=== PATIENT | male | born 1985 | race Caucasian/White ===

== ENCOUNTER 2019-03-16 08:33 | Emergency (ER) | payer BC ==
[2019-03-16] MEDS ORDERED: 0.9 % SODIUM CHLORIDE 1,000 ML BAG IV ONE (08:54)
[2019-03-16 08:58] LABS: URINE APPEARANCE CLEAR; URINE BILIRUBIN NEGATIVE (NEGATIVE); URINE BLOOD TRACE-I (NEGATIVE); URINE COLOR YELLOW; URINE GLUCOSE (UA) NEGATIVE (NEGATIVE); URINE KETONE NEGATIVE (NEGATIVE); URINE LEUKOCYTE ESTERASE NEGATIVE (NEGATIVE); URINE NITRITE NEGATIVE (NEGATIVE); URINE PROTEIN TRACE (NEGATIVE); URINE UROBILINOGEN 0.2 E.U./dL (0.20 - 1.00)
[2019-03-16 09:10] LABS: URINE EPITHELIAL CELLS 0 - 2 (FEW); URINE MUCUS LIGHT; URINE SPERM FEW; URINE WBC 0 - 2 (0-2/hpf)
--- NOTE | 2019-03-16 09:10 | Emergency Department Record ---
History of Present Illness - General Chief Complaint: Cough Stated Complaint: R SIDE PAIN/COUGH/GAGE Time Seen by Provider: 03/16/19 08:48 Source: Patient Mode of Arrival: Ambulatory Limitations: No limitations - History of Present Illness Initial Comments: The patient is here due to a chronic cough for months that does not seem to be going away. He does smoke a pack a day of cigarettes and does intermittently cough up some blood. The patient denies any CP, pleuritic pain, or SOB but does state he seems to have coughing fits at times that does take his breath away but that has been going on for months. There has been no fever, chills, HERMOSILLO or GAGE. The patient ALSO has had R flank pain for about a week. The pain is aching and seems to be worse with movements. He was seen at an urgent care and told he has shingles but has never had a rash. The patient denies any dysuria or hematuria. MD Complaint: Cough Onset/Timin -: Week(s) - Related Data Previous Rx's Medication Instructions Recorded Albuterol Sulfate [Proair Hfa] 2 puff IH QID PRN #1 inhaler 03/16/19 Azithromycin [Zithromax] 250 mg PO ASDIR #6 tab 03/16/19 Allergies Allergy/AdvReac Type Severity Reaction Status Date / Time No Known Drug Allergies Allergy Verified 03/16/19 08:47 Travel Screening - Travel/Exposure Within Last 30 Days Have you traveled within the last 30 days?: No - Travel/Exposure Within Last Year Have you traveled outside the [place] in the last year?: No - Additonal Travel Details Have you been exposed to anyone with a communicable illness?: No - Travel Symptoms Symptom Screening: None Review of Systems Constitutional: Denies: Chills, Fever Eyes: Denies: Eye discharge ENT: Reports: Congestion Respiratory: Reports: Cough. Denies: Dyspnea, Hemoptysis Cardiovascular: Denies: Arrhythmia Endocrine: Denies: Fatigue Gastrointestinal: Reports: Abdominal pain. Denies: Diarrhea, Nausea Genitourinary: Denies: Hematuria Musculoskeletal: Denies: Arthralgia Skin: Denies: Bruising Past Medical History - SOCIAL HISTORY Smoking Status: Current every day smoker Alcohol Use: Heavy Drug Use: None - RESPIRATORY Hx Respiratory Disorders: No - CARDIOVASCULAR Hx Cardio Disorders: No - NEURO Hx Neuro Disorders: No - GI Hx GI Disorders: No - Hx Genitourinary Disorders: No - ENDOCRINE Hx Endocrine Disorders: No - MUSCULOSKELETAL Hx Musculoskeletal Disorders: No - PSYCH Hx Psych Problems: No - HEMATOLOGY/ONCOLOGY Hx Hematology/Oncology Disorders: No Hx Blood Disorders: No Family Medical History Any Significant Family History?: No Physical Exam - General General Appearance: Alert, Oriented x3, Cooperative, No acute distress - Head Head exam: Atraumatic, Normocephalic, Normal inspection - Eye Eye exam: Normal appearance, PERRL, EOMI - ENT Throat exam: Normal inspection. negative: Tonsillar erythema, Tonsillar exudate - Neck Neck exam: Normal inspection, Full ROM. negative: Tenderness - Respiratory Respiratory exam: Normal lung sounds bilaterally. negative: Respiratory distress - Cardiovascular Cardiovascular Exam: Regular rate, Normal rhythm, Normal heart sounds. negative: Diastolic murmur, Systolic murmur - GI/Abdominal GI/Abdominal exam: Soft, Normal bowel sounds. negative: Guarding, Rebound, Rigid, Tenderness - Extremities Extremities exam: Normal inspection, Full ROM, Normal capillary refill. negative: Tenderness - Back Back exam: Reports: Normal inspection. Denies: Paraspinal tenderness, Vertebral tenderness - Neurological Neurological exam: Alert, Normal gait, Oriented X3. negative: Abnormal gait, Motor sensory deficit Course Vital Signs 03/16/19 08:38 Temperature 97.7 F Pulse Rate 97 H Respiratory 18 Rate Blood Pressure 143/81 Pulse Ox 96 - Reevaluation(s) Reevaluation #1: The patient is doing very well at this time. I did discuss the neg workup with the patient and the need for F/U with his PCP in 1-2 weeks. The patient understands and will see his doctor as planned. 03/16/19 10:09 Medical Decision Making - Data Complexity MDM Data: Labs Ordered and/or Reviewed, X-Ray Ordered and/or Reviewed - Lab Data Result diagrams: 03/16/19 09:06 03/16/19 09:06 Lab Results 03/16/19 Range/Units 08:52 Urine Color Yellow Urine Appearance Clear Urine pH 6.0 (5.0-8.0) Ur Specific [place] >= 1.030 (1.002-1.030) Urine Protein Trace H (NEGATIVE) Urine Glucose (UA) Negative (NEGATIVE) Urine Ketones Negative (NEGATIVE) Urine Blood Trace-i (NEGATIVE) Urine Nitrite Negative (NEGATIVE) Urine Bilirubin Negative (NEGATIVE) Urine Urobilinogen 0.2 (0.20 - 1.00) E.U./dL Ur Leukocyte Esterase Negative (NEGATIVE) - Radiology Data Radiology results: Report reviewed (CXR: Neg Abd CT: Neg for any acute changes.) Disposition Disposition: Discharge Clinical Impression: Chronic coughing Disposition: Home, Self-Care Condition: (2) Stable Instructions: Chronic Cough (ED) Additional Instructions: Please use the inhaller as directed and also take the Zpak. Please use Advil or Alleve for the R flank pain. Please see your doctor in 1-2 weeks for recheck. Return to the ER for any worsening symptoms. Prescriptions: Albuterol Sulfate [Proair Hfa] 2 puff IH QID PRN #1 inhaler PRN Reason: Cough And Difficulty Breathing Azithromycin [Zithromax] 250 mg PO ASDIR #6 tab Forms: Patient Portal Access Time of Disposition: 10:07 Quality - Quality Measures Quality Measures: N/A - Blood Pressure Screening View Details: Yes Does Patient Have Any of the Following: No Blood Pressure Classification: Pre-Hypertensive BP Reading Systolic Measurement: 143 Diastolic Measurement: 81 Screening for High Blood Pressure: < Pre-Hypertensive BP, F/U Documented > [G8950] Pre-Hypertensive Follow-up Interventions: Referral to alternative/primary care provider.
[2019-03-16 09:15] LABS: ABSOLUTE NEUTROPHIL COUNT 5.02; BASO % 0.2 % (0-6); EOS % 1.7 % (0-6); GRAN % 55.3 % (47-80); HEMATOCRIT 43.6 % (42.0-52.0); HEMOGLOBIN 14.9 gm/dl (14.0-18.0); LYMPH % 28.8 % (16-45); MEAN CELL VOLUME 91.8 fl (81-97); MEAN CORPUSCULAR HEMOGLOBIN 31.4 pg (27-33); MEAN CORPUSCULAR HGB CONC 34.2 g/dl (32-36); PLATELET COUNT 248 K/uL (130-400); RED BLOOD COUNT 4.75 M/uL (4.40-5.70); RED CELL DISTRIBUTION WIDTH 13.3 % (11.5-14.5); WHITE BLOOD COUNT W/O DIFF 9.1 K/uL (4.2-12.2)
[2019-03-16 09:25] LABS: BLOOD UREA NITROGEN 11 mg/dL (6-20); CREATININE 0.7 mg/dL (0.7-1.2); EST GLOMERULAR FILTRATION RATE > 60 mL/min
[2019-03-16 09:26] LABS: LIPASE 27 U/L (13-60); TOTAL PROTEIN 6.8 g/dL (6.6-8.7)
[2019-03-16 09:28] LABS: GLUCOSE,RANDOM 94 mg/dL (74-109)
[2019-03-16 09:31] LABS: ALBUMIN 4.7 g/dL (4.0-5.0); ALKALINE PHOSPHATASE 44 U/L (40-129); ALT/SGPT 12 U/L (<41); AST/SGOT 17 U/L (10.0-50.0); BILIRUBIN,DIRECT < 0.2 mg/dL (0-0.3)
[2019-03-16 09:43] LABS: C-REACTIVE PROTEIN 0.2 mg/dL (<0.5)
--- NOTE | 2019-03-16 09:51 | RADIOLOGY REPORT ---
EXAMINATION: Two View Chest Radiographs EXAM DATE: 03/16/2019 9:24 AM TECHNIQUE: Frontal and lateral views INDICATION: chronic cough COMPARISON: None ENCOUNTER: Not applicable FINDINGS: The heart, mediastinum, and pulmonary vasculature are normal. No lung consolidation or pleural effu sions are present. IMPRESSION: No acute process. Dictated by: Dinesh Hooks DO on 03/16/2019 9:45 AM. .
--- NOTE | 2019-03-16 09:54 | CT SCAN REPORT ---
EXAMINATION: CT Abdomen and Pelvis without IV Contrast EXAM DATE: 03/16/2019 9:24 AM TECHNIQUE: Standard protocol CT imaging of the abdomen and pelvis was performed without intravenous c ontrast. INDICATION: R flank pain. COMPARISON: None ENCOUNTER: Not applicable CT ABDOMEN AND PELVIS FINDINGS: Lung Bases: Included extent of the lung bases are clear. Hepatobiliary: The liver has a normal size with a smooth surface. There is no biliary dilatation and the gallbladder is unremarkable. Pancreas: The pancreas is normal. Spleen: The spleen is not enlarged. Adrenals: The adrenal glands are normal. Gastrointestinal: The stomach and small bowel are normal with no obstruction or inflammation. The gloria endix is normal. The large bowel is within normal limits. Reproductive Organs: Unremarkable Lymphatic System: There is no adenopathy within the abdomen or pelvis. Vasculature: Normal caliber abdominal aorta Peritoneum: No free fluid, free air, or inflammation Assessment of the solid organs, soft tissues, and vascular structures is overall limited on noncontra st imaging, IMPRESSION: Mild right nephrolithiasis however no evidence of obstructive uropathy. Dictated by: Dinesh Hooks DO on 03/16/2019 9:49 AM. .
== END 2019-03-16 10:13 | disposition home or self-care (01) ==
LOC: ER 08:33
DX: R05 Cough (principal); R10.9 Unspecified abdominal pain; R06.00 Dyspnea, unspecified; F17.210 Nicotine dependence, cigarettes, uncomplicated
CPT/HCPCS: 71046; 74176; 80048; 80076; 81001; 83690; 84145; 85025; 86140; 99284; J7030